=== PATIENT | female | born 1985 | race Caucasian/White ===

== ENCOUNTER 2019-05-26 05:10 | Inpatient (IN) | payer OTHER ==
[2019-05-26 05:51] LABS: ABS Lymphocytes 1.5 10^3/ul (1.0-4.8); ABS Monocytes 0.8 10^3/ul (0-0.8); ABS Neutrophils 7.2 10^3/ul (1.5-7.7); Eosinophil % 0.4 %; Hematocrit 36 % (35-47); Hemoglobin 12.6 g/dL (12.0-16.0); Lymphocyte % 15.4 %; Mean Corpuscular HGB Conc 35 g/dL (31-36); Mean Corpuscular Hemoglobin 32 pg (27-31); Mean Corpuscular Volume 92 fL (80-97); Mean Platelet Volume 7.5 fL (7.4-10.4); Platelet Count 206 10^3/uL (150-450); Red Blood Count 3.96 10^6 /uL (3.70-4.87); Red Cell Distribution Width 14 % (10-15); White Blood Count 9.6 10^3/uL (3.5-10.8)
[2019-05-26] MEDS ORDERED: Buffered Lidocaine 1% SYRIN* 1 ML/SYRINGE INTRADERM ONE (06:14)
[2019-05-26] MEDS ORDERED: Lactated Ringers 1000 ML Bag* 1,000 ML IV ONE (06:14)
--- NOTE | 2019-05-26 06:29 | HP ---
General Information - Reason for Visit Patient awoke with contractions around 0300, getting stronger. - General Information Maternal Age: 34 Grav: 1 Para: 0 SAB: 0 IEA: 0 Estimated Due Date: 05/15/19 Determined By: LMP Maternal Blood Type and Rh: B Positive - Results this Serology/RPR Result: Non-Reactive Rubella Result: Immune HBsAg Result: Negative HIV Result: Negative GBS Culture Result: Negative Past Medical History Delivery History: See Records Delivery History Comment: No previous pregnancies Pertinent Past Medical History: See Records Past Medical History Comment: HSV Anxiety Latent TB IBS Fx right radius as a child Pertinent Past Surgical History: See Records Past Surgical History Comment: pilonidal cystectomy Pertinent Family History: See Records Family History Comment: Diabetes Heart dz Lung ca Liver ca - Antepartal Records Antepartal Records: Reviewed, Complicated by: - HSV with 37 week outbreak, healed and on suppression. Review of Systems Constitutional: Uncomfortable CV Complaint: No Respiratory: Shortness of Breath: No Gastrointestinal: Normal Bowel Movement, Nausea Genitourinary: No Leaking Fluid, Spotting Musculoskeletal: Contractions Neurological: No Headache, No Visual Changes Movement: Normal Exam Allergies/Adverse Reactions: Allergies Sulfa (Sulfonamide Antibiotics) Allergy (Verified 05/26/19 06:38) Unknown Reaction Details BP 122/91 T 98.8 HR 78 O2 100 RR 17 Lab Values - Entire Visit: Laboratory Tests 05/26/19 05/26/19 05:40 05:40 WBC 9.6 RBC 3.96 Hgb 12.6 Hct 36 MCV 92 MCH 32 H MCHC 35 RDW 14 Plt Count 206 MPV 7.5 Neut % (Auto) 75.5 Lymph % (Auto) 15.4 [place] % (Auto) 8.2 Eos % (Auto) 0.4 Baso % (Auto) 0.5 Absolute Neuts (auto) 7.2 Absolute Lymphs (auto) 1.5 Absolute Monos (auto) 0.8 Absolute Eos (auto) 0.0 Absolute Basos (auto) 0.0 Absolute Nucleated RBC 0.0 Nucleated RBC % 0.0 Blood Type B Positive Antibody Screen Negative - Measurements Height: 5 ft 9 in Weight: 184 lb Weight in lbs: 184.829482 Body Mass Index (BMI): 27.1 Pre- Weight: 150 lb Weight Gained This : 34 lbs and 0 ozs - Exam Breast: Breast Exam Deferred CVA: No CVA Tenderness Extremities: No Edema Heart: Normal Rhythm/Heart Sounds HEENT: No Significant Findings Lungs: Clear Bilaterally Rectal: Rectal Exam Deferred Reflexes: DTR 2+, - - no clonus Thyroid: - - WNL @ entry to care - Abdominal Exam Abdomen Exam: Non-Tender, Fundal Height Consistent with Dates - Ultrasound/Biophysical Profile Ultrasound Status: Not Done Targeted Exam Findings Cervical Exam: 2cm Effacement: 80% Station: -3 Presenting Part: Vertex Membrane Status: AROM - Questionable AROM? FSE placed after attempts with amnihook to rupture. Dark bloody fluid but small amount more consistent with bloody show than amniotic fluid. Unknown if meconium. Bleeding/Discharge: Bloody Show EFM Findings - External Monitor Findings Baseline Heart Rate: 135 - After initial monitoring, decel of 6 minutes, resolved with fluid, position changes. After another 4 minute decel, FSE placed. External Monitor Findings: Accelerations Present, Variability Moderate Contractions: Irregular, Moderate, 45-90 Seconds Contraction Frequency: Q 2-4 Assessment/Plan - Assessment IUP @ 41+4 weeks gestation in early labor. Cat 2 FHT. - Obstetrical Risk Factors Obstetrical Risk Factors: Post-Dates - Plan Plan: Admit - Anticipate Vaginal Delivery Plan Comment: Admit, continue to monitor. Consult with oncoming doctor with consideration of expedited delivery if indicated. - Date/Time of Admission Date of Admission: 05/26/19 Time of Admission: 06:10
[2019-05-26] MEDS ORDERED: Lactated Ringers 1000 ML Bag* 1,000 ML IV SCH ×2 (07:00→11:00)
[2019-05-26] MEDS ORDERED: Sodium Citrate/Citric Acid* 15 ML UDC ONE (07:25)
[2019-05-26] MEDS ORDERED: ceFOXitin 2 GM IVPREMIX* 2 GM/50 ML BAG ONE (07:28)
--- NOTE | 2019-05-26 07:40 | PN ---
Progress Note - Progress Note Date of Service: 05/26/19 Note: Pt is a 34 y/o G1 at 41w3d, presented with painful regular contractions. After placement on the monitor FH exhibited a 6 minute prolonged deceleration. Resucitative measures were implemented including Maternal O2, maternal repositioning, IVF rescuscitation. FH recovered, but since that time has exhibited minimal variability and recurrent late and prolonged decelerations. Cervical exam is fingertip dilation. Discussed with mother the risks versus benefits of continued expectant management versus proceeding with primary for Non reassuring heart tracing remote from delivery. Suspect uteroplacental insufficiency related to late term gestation. Patient is otherwise healthy with limited medical hx of only HSV, no active outbreak or lesion. Written consent reviewed and obtained. Will proceed to OR in a timely fashion as safety permits. DO MINH Dc
[2019-05-26] MEDS ORDERED: Morphine PF AMP (0.5MG/ML)* 5 MG/10 ML AMP ONE (07:52)
[2019-05-26] MEDS ORDERED: OXYTOCIN* 10 UNITS/ML 1 ML VIAL ONE (08:10)
[2019-05-26] MEDS ORDERED: Ondansetron INJ* 2 MG/ML VIAL ONE (08:10)
[2019-05-26] MEDS ORDERED: Phenylephrine 40 MCG/ML SYRINGE ONE (08:11)
[2019-05-26] MEDS ORDERED: fentaNYL* 50 MCG/ML 2 ML VIAL (100 MCG VIAL) IV PRN (08:32)
[2019-05-26] MEDS ORDERED: oxyCODONE/Acetamin 5/325 MG* TAB PO PRN ×4 (08:32→23:51)
[2019-05-26] MEDS ORDERED: Naloxone* 0.4 MG/ML 1 ML VIAL IV PRN ×2 (08:32)
[2019-05-26] MEDS ORDERED: Ondansetron INJ* 2 MG/ML VIAL IV PRN (08:32)
[2019-05-26] MEDS ORDERED: DiMENhydriNATE IV* 50 MG/ML VIAL ONE (09:44)
[2019-05-26] MEDS ORDERED: Scopolamine 1.5 mg* PATCH ONE (09:44)
[2019-05-26] MEDS ORDERED: Scopolamine 1.5 mg* PATCH TRANSDERM ONE (09:45)
[2019-05-26] MEDS ORDERED: DiMENhydriNATE IV* 50 MG/ML VIAL IV PUSH ONE (09:45)
[2019-05-26] MEDS ORDERED: Dibucaine 1% 28.35 GM TUBE PR PRN (10:07)
[2019-05-26] MEDS ORDERED: Glycerin ADULT SUPP PR PRN (10:07)
[2019-05-26] MEDS ORDERED: Zolpidem TAB* 5 MG PO PRN (10:07)
[2019-05-26] MEDS ORDERED: Witch Hazel PAD* JAR TOPICAL PRN (10:07)
[2019-05-26] MEDS: Ketorolac INJ* 30 MG/ML 1 ML VIAL IV PRN ×3 (10:51→23:11)
[2019-05-26] MEDS ORDERED: Nalbuphine* 10 MG/ML 1 ML VIAL ONE (11:06)
[2019-05-26] MEDS: Nalbuphine* 10 MG/ML 1 ML VIAL IV PRN ×2 (11:13→22:01)
[2019-05-26] MEDS: Simethicone TAB* 80 MG TAB.CHEW PO SCH ×3 (13:32→23:11)
[2019-05-26] MEDS: Docusate CAP* 100 MG PO SCH ×2 (15:15→23:11)
--- NOTE | 2019-05-26 16:49 | CONS ---
CONSULTATION REPORT: DATE OF CONSULT: 05/26/19 REQUESTING PHYSICIAN: Dr. Jaime. CONSULTING SERVICE: Infectious Disease. REASON FOR CONSULT: Question of genitourinary tuberculosis. IMPRESSION: 1. Abnormal fallopian tube findings by direct visualization during a that was reminiscent of tuberculosis infection, they could represent calcified granuloma from prior disseminated TB infection. She had not had recent pelvic symptoms before her or constitutional symptoms. She did have a history of latent tuberculosis treated with 9 months of isoniazid, which theoretically should have decreased her risk of any active tuberculosis disease , and this would be a rare manifestation of extrapulmonary disease. 2. SULFA allergy. RECOMMENDATIONS: She has had a chest x-ray that is unremarkable. She has no pulmonary symptoms, so if she does have any form of tuberculosis, she does not have evidence of pulmonary TB and is not contagious. Given that she just had a today and has no evidence of active disease, I think it is reasonable to reevaluate in a few weeks to discuss further diagnostic workup, which includes pelvic imaging and then definitive diagnosis which is usually by sampling of the fallopian tubes and endometrium. HISTORY OF PRESENT ILLNESS: This is a 34-year-old woman who delivered a baby by this morning. I discussed the case with Dr. Jaime who said that there were findings on the fallopian tube that looked like the changes due to tuberculosis infection of the tubes. Because they were benign, they did not obtain a tissue sample. According to the patient, she has not had issues with endometrial infection or pelvic pain or other endometrial sampling in the last year or two. Her was otherwise unremarkable. She does have a history of latent TB diagnosed with a positive skin test, which was done for dietary rotation in the hospital in 2010. Because it was positive , she had a chest x-ray that was negative. She had 9 months of isoniazid, which she completed. She had grown up in [place], [place], and [place]. PAST MEDICAL HISTORY: Latent tuberculosis, treated in 2010. ALLERGIES: SULFA. MEDICATIONS: 1. Tylenol. 2. Dibucaine. 3. Docusate. 4. Fentanyl as needed. 5. Ferrous gluconate. 6. Glycerin suppository as needed. 7. Ibuprofen as needed. 8. Ketorolac as needed. 9. Naloxone as needed. 10. Oxycodone as needed. 11. Simethicone. 12. Witch-chelly as needed. 13. Ambien as needed. 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 She moved here from [place] with her . She was born in [place], lived there; then in [facility]; then in [facility] for a number of years as a child. No known TB contacts or relatives. FAMILY HISTORY: No recurrent infections or tuberculosis. REVIEW OF SYSTEMS: All negative except as noted above to a 12-point review. PHYSICAL EXAM: Vital Signs: Temperature 37, heart rate 55, respiratory rate 16 , blood pressure 101/68, oxygen saturation 98% on room air. In general, she is awake, not in distress. Neurologic: She is oriented x3. Follows all commands. HEENT: There is no conjunctival hemorrhage. Oropharynx without lesions. Neck is supple without mass. Heart is regular rate and rhythm without murmurs, rubs, or gallops. Lungs are clear to auscultation bilaterally. Abdomen: Soft, nontender, nondistended. Skin: There is no rash or splinter hemorrhage. LABORATORY DATA: White blood cell count 9, hemoglobin 12.6, platelets 206. Please see impression and recommendations outlined above. Thanks for asking me to see Ms. Janell Mcarthur in consultation. [id number]/[facility] #: [id number] NATE
--- NOTE | 2019-05-27 01:09 | OP ---
DATE OF OPERATION: 05/26/19 - ROOM #118 DATE OF : 81 SURGEON: Rad Mckay DO. PICCOLOIST: Luis Alberto Jaime MD. ANESTHESIA: Spinal. PRE-OP DIAGNOSIS: Late term at 41 weeks 4 days, nonreassuring heart tracing, remote from delivery. POST-OP DIAGNOSIS: Late term at 41 weeks 4 days, nonreassuring heart tracing, remote from delivery, delivered. OPERATIVE PROCEDURE: Primary low transverse section via Pfannenstiel incision. ESTIMATED BLOOD LOSS: 600 mL. IV FLUIDS RECEIVED: 600 mL. URINE OUTPUT: 500. SPECIMEN: Placenta was discarded. COMPLICATIONS: There were no significant complications. FINDINGS: Female infant in vertex position, Apgars 8 and 9, thick meconium, weight 8 pounds 1 ounces or 3646 g. Normal uterus, fallopian tubes, and ovaries with several small benign in appearance 1- to 2-mm granuloma-like lesions on bilateral fallopian tubes and ovaries. INDICATIONS: The patient presented to the hospital ruptured and in early labor. During labor, the heart tracing began to show signs of distress including recurrent prolonged decelerations and deep variable decelerations with minimal variability. section was recommended to the patient for wellbeing. The patient understood that the risks of section included, but are not limited to, visceral or vascular injury, infection, blood loss, need for transfusion, prolonged hospitalization, and reoperation. A written consent was reviewed with the patient and consent was signed. All questions were answered. DESCRIPTION OF PROCEDURE: The patient was taken to the operating room where spinal anesthesia was found to be adequate. Cefoxitin was administered 2 g for infection prophylaxis. She was prepped and draped in the dorsal supine position with a leftward tilt. A Pfannenstiel skin incision was made with a scalpel. This was carried down to the fascia with the scalpel. The fascia was incised and extended laterally. The inferior aspect of the fascia was grasped with Ju clamps. Underlying rectus muscle and pyramidalis was dissected off sharply with Billings scissors. In a similar fashion, the superior aspect of the fascia was elevated with Ju and the rectus muscle dissected off. Hemostasis was achieved with the Bovie. The rectus muscle was in the midline down to the level of the pubic symphysis. Preperitoneal fatty tissue was bluntly dissected to expose the peritoneum. Peritoneum was free of adherent bowel and entered bluntly. The peritoneal incision was extended superiorly and inferiorly to the bladder reflection with good visualization of the bladder. Bladder blade was inserted and vesicouterine peritoneum identified. Intraabdominal survey revealed scant clear peritoneal fluid and thinned out lower uterine segment. Peritoneum was opened with scissors and a bladder flap was developed. Bladder blade was repositioned to keep the bladder out of the operative field. The lower uterine segment was incised with a scalpel. The amniotic sac ruptured spontaneously and thick meconium stained fluid was noted. The uterine incision was extended bluntly with cephalocaudad traction. The fetus was in cephalic presentation. The head was elevated out of the pelvis with special attention paid to avoid using the uterine incision as a fulcrum. Gentle fundal pressure was applied once the head was brought to the incision. was delivered with no difficulty. The mouth and nose were suctioned with a bulb. The cord was clamped and cut. The infant was handed off to the general ophthalmologist. IV oxytocin was initiated to facilitate uterine contraction. The placenta was delivered intact with manual massage of the uterine fundus. The uterus was then exteriorized. The inside of the uterus wiped with lap sponges to assure complete removal of placental membranes. The uterine incision was closed with a 0 Vicryl suture in a running locked fashion. An imbricating suture was also performed with 0 Vicryl. The ovaries and tubes were inspected and several 1 to 2 mm granulomatous benign in appearance lesions were noted bilaterally. Otherwise, the ovaries and fallopian tubes were normal. The uterus, tubes, and ovaries were then returned to the abdominal cavity. The blood clots and fluid were wiped out of the abdomen and pelvis with moist laparotomy sponges. Uterine incision was reinspected and good hemostasis was noted. The peritoneum was closed with a 3-0 Vicryl suture in a continuous running fashion. The fascia was closed with 0 Vicryl in a continuous running fashion. The skin was closed with 4-0 Monocryl in a subcuticular fashion. The patient tolerated the procedure well. All counts were correct x2. The patient was taken to the recovery room in a stable condition. Joey Mckay DO OBGYN [id number]/[facility] #: [id number] MTDD
[2019-05-27] MEDS: Ketorolac INJ* 30 MG/ML 1 ML VIAL IV PRN (04:54)
[2019-05-27] MEDS: Simethicone TAB* 80 MG TAB.CHEW PO SCH ×4 (08:27→21:29)
[2019-05-27] MEDS: Docusate CAP* 100 MG PO SCH ×3 (08:27→21:29)
[2019-05-27] MEDS ORDERED: Ferrous Gluconate TAB* 324 MG TAB PO SCH (09:00)
[2019-05-27 09:35] LABS: ABS Lymphocytes 1.4 10^3/ul (1.0-4.8); ABS Monocytes 0.5 10^3/ul (0-0.8); ABS Neutrophils 5.4 10^3/ul (1.5-7.7); Eosinophil % 0.6 %; Hematocrit 30 % (35-47); Hemoglobin 10.3 g/dL (12.0-16.0); Lymphocyte % 18.7 %; Mean Corpuscular HGB Conc 35 g/dL (31-36); Mean Corpuscular Hemoglobin 32 pg (27-31); Mean Corpuscular Volume 92 fL (80-97); Mean Platelet Volume 7.1 fL (7.4-10.4); Platelet Count 172 10^3/uL (150-450); Red Blood Count 3.21 10^6 /uL (3.70-4.87); Red Cell Distribution Width 15 % (10-15); White Blood Count 7.4 10^3/uL (3.5-10.8)
[2019-05-27] MEDS: Ibuprofen TAB* 600 MG PO PRN ×2 (11:59→19:05)
[2019-05-27] MEDS: Acetaminophen TAB* 325 MG PO PRN (20:21)
[2019-05-28] MEDS: Ibuprofen TAB* 600 MG PO PRN ×4 (03:31→21:38)
[2019-05-28] MEDS: Acetaminophen TAB* 325 MG PO PRN ×4 (03:32→21:39)
[2019-05-28] MEDS: Docusate CAP* 100 MG PO SCH ×3 (09:49→21:39)
[2019-05-28] MEDS: Simethicone TAB* 80 MG TAB.CHEW PO SCH ×3 (09:49→21:39)
--- NOTE | 2019-05-28 16:18 | PTEDU ---
Patient Name: REJI LEACH REJI LEACH selected video: Follow Me Mum: [employer] [facility] Successful to view on 05/28/2019 at 4:16:25 PM from [id number]
[2019-05-29] MEDS: Acetaminophen TAB* 325 MG PO PRN ×3 (01:52→13:34)
[2019-05-29] MEDS: Ibuprofen TAB* 600 MG PO PRN ×3 (03:35→15:51)
[2019-05-29] MEDS: Docusate CAP* 100 MG PO SCH ×2 (08:35→13:34)
[2019-05-29] MEDS: Simethicone TAB* 80 MG TAB.CHEW PO SCH ×2 (08:35→12:18)
[2019-05-29] MEDS ORDERED: Scopolamine PATCH Remove* 1 NOTE MISC PATCH OFF ONE (09:45)
[2019-05-29 15:05] VITALS: BP 110/74
[2019-05-29 15:33] LABS: TB1 Ag minus Nil Result -0.01 IU/mL; TB2 Ag minus Nil Result -0.02 IU/mL
[2019-05-29 15:44] LABS: QuantiferonTb Gold Plus Result Negative (Negative)
== END 2019-05-29 16:30 | disposition home or self-care (01) | DRG 788 ==
LOC: MCHOBOUT 05:10 → MCHOB 06:10
PROVIDERS: ADMIT Midwife; ATTEND Obstetrics & Gynecology
PROC: 10907ZC Drainage of Amniotic Fluid, Therapeutic from Products of Conception, Via Natural or Artificial Opening (ICD-10-PCS; 2019-05-26)
PROC: 10D00Z1 Extraction of Products of Conception, Low, Open Approach (ICD-10-PCS; principal; 2019-05-26 07:34)
DX: O48.0 Post-term pregnancy (principal); O76 Abnormality in fetal heart rate and rhythm complicating labor and delivery; O99.344 Other mental disorders complicating childbirth; F41.9 Anxiety disorder, unspecified; O77.0 Labor and delivery complicated by meconium in amniotic fluid; L92.8 Other granulomatous disorders of the skin and subcutaneous tissue; Z37.0 Single live birth; Z3A.41 41 weeks gestation of pregnancy
CPT/HCPCS: 36415; 71045; 85025; 86481; 86850; 86900; 86901; A9270-GY; J0694; J1240; J1885; J2300; J2405; J2590